=== PATIENT | male | born 1990 | race Caucasian/White ===

== ENCOUNTER 2018-08-26 17:22 | Emergency (ER) | payer OTHER ==
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
[2018-08-26 19:35] VITALS: BP 129/87
== END 2018-08-26 19:35 | disposition home or self-care (01) ==
DX: S50.02XA Contusion of left elbow, initial encounter (principal); M77.12 Lateral epicondylitis, left elbow; V18.0XXA Pedal cycle driver injured in noncollision transport accident in nontraffic accident, initial encounter; Y93.55 Activity, bike riding
CPT/HCPCS: A4565